=== PATIENT | female | born 1970 | race Two or more races ===

== ENCOUNTER → 2017-07-05 | Outpatient (CLI) | payer OTHER | LOC: BMCIMAGING 08:12 | PROVIDERS: ATTEND Obstetrics & Gynecology | DX: Z12.31 Encounter for screening mammogram for malignant neoplasm of breast (principal) | CPT/HCPCS: G0202 ==

== ENCOUNTER → 2018-08-13 | Outpatient (CLI) | payer OTHER | LOC: BMCIMAGING 08:04 | PROVIDERS: ATTEND Obstetrics & Gynecology | DX: Z12.31 Encounter for screening mammogram for malignant neoplasm of breast (principal); Z80.3 Family history of malignant neoplasm of breast ==